=== PATIENT | male | born 1965 | race Caucasian/White ===

== ENCOUNTER 2016-10-07 22:14 | Emergency (ER) | payer OTHER ==
[~2016-10-07] VITALS: Ht 167.6 cm; Wt 69.0 kg
[~2016-10-07 22:14] MED LIST: ATARAX,VISTARIL50 MG PO; MOTRIN600 MG PO; PERCOCET 5/31 TABLET PO; PREDNISONE20 MG PO; ZANTAC150 MG PO; ZITHROMAX Z-PA250 MG PO
[2016-10-07] MEDS ORDERED: BACTRIM,SEPT1 TABLET PO (23:28)
[2016-10-07 23:45] VITALS: BP 146/90
== END 2016-10-07 23:46 | disposition home or self-care (01) ==
LOC: EME 22:14 → EXP 22:14
DX: S90.562A Insect bite (nonvenomous), left ankle, initial encounter (principal); L08.9 Local infection of the skin and subcutaneous tissue, unspecified; W57.XXXA Bitten or stung by nonvenomous insect and other nonvenomous arthropods, initial encounter; Z88.0 Allergy status to penicillin
CPT/HCPCS: 99281; 99283

== ENCOUNTER → 2017-08-11 17:03 | Emergency (ER) | payer OTHER ==
[~2017-08-11] VITALS: Ht 167.6 cm; Wt 68.7 kg
[~2017-08-11 17:03] MED LIST changes: +BACTRIM,SEPT1 TABLET PO
[2017-08-11 17:46] VITALS: BP 142/85
== END | disposition left against medical advice (07) ==
LOC: EME 17:03
DX: Z72.89 Other problems related to lifestyle (principal); Z53.21 Procedure and treatment not carried out due to patient leaving prior to being seen by health care provider